=== PATIENT | female | born 2000 | race Caucasian/White ===

== ENCOUNTER 2025-05-07 21:28 | Emergency (ER) | payer MEDICAID ==
[2025-05-07 22:13] LABS: BASOPHILS ABSOLUTE AUTO 0.07 K/uL (0.00-0.10); BASOPHILS PERCENT AUTO 0.6 % (0.1-1.3); EOSINOPHILS ABSOLUTE AUTO 0.15 K/uL (0.00-0.40); EOSINOPHILS PERCENT AUTO 1.2 % (0.0-5.4); IMMATURE GRAN ABSOLUTE AUTO 0.05 K/uL (0.00-0.23); IMMATURE GRAN PERCENT AUTO 0.4 % (0.0-0.7); LYMPHOCYTES ABSOLUTE AUTO 1.70 K/uL (0.8-3.3); LYMPHOCYTES PERCENT AUTO 13.9 % (11.4-47.7); MONOCYTES ABSOLUTE AUTO 0.76 K/uL (0.20-0.90); MONOCYTES PERCENT AUTO 6.2 % (3.3-12.6); NEUTROPHILS ABSOLUTE AUTO 9.51 K/uL (1.0-7.6); NEUTROPHILS PERCENT AUTO 77.7 % (40.0-78.1); PLATELET COUNT,PLT 306 K/uL (130-375); RED BLOOD CELL COUNT 5.09 M/uL (3.77-5.24); WHITE BLOOD CELL COUNT,WBC 12.2 K/uL (3.2-11.0)
[2025-05-07] MEDS: Ondansetron 4 MG/2 ML SDV IVPUSH ONE (22:19)
[2025-05-07 22:39] LABS: LACTIC ACID 1.3 mmol/L (0.4-2.0)
[2025-05-07 22:43] LABS: HCG QUANTITATIVE 1 mIU/mL (0-6)
[2025-05-07 22:46] LABS: A/G RATIO 1.2 (1.2-2.2); ALANINE AMINOTRANSFERASE,ALT 237 U/L (12-78); ASPARTATE AMNIOTRANSFERASE,AST 362 U/L (15-37); BILIRUBIN TOTAL 0.8 mg/dL (0.2-1.0); BLOOD UREA NITROGEN,BUN 12 mg/dL (7-18); CARBON DIOXIDE,CO2 30 mmol/L (21-32); CHLORIDE,CL 106 mmol/L (100-108); CREATININE 0.8 mg/dL (0.6-1.0); EST CRCL DRUG DOSING (CG) 89.70 mL/min; ESTIMATED GFR 105 mL/min (>60); GLUCOSE RANDOM 123 mg/dL (74-106); POTASSIUM,K 3.9 mmol/L (3.6-5.2); PROTEIN TOTAL,TP 7.4 g/dL (6.4-8.2); SODIUM,NA 143 mmol/L (140-148)
[2025-05-07] MEDS ORDERED: Iopamidol 612 MG/ML 100 ML Bottle IV ONE (22:59)
[2025-05-07] MEDS ORDERED: Sodium Chloride 0.9% 10 ML Syringe FLUSH ONE (22:59)
[2025-05-07] MEDS: Iopamidol 612 MG/ML 100 ML Bottle IV SCH (23:37)
[2025-05-07] MEDS: Sodium Chloride 0.9% 10 ML Syringe FLUSH ONE (23:37)
[2025-05-07 23:38] LABS: APPEARANCE,URINE SLIGHTLY CLOUDY (CLEAR); GLUCOSE,URINE NEGATIVE (NEGATIVE); OCCULT BLOOD,URINE NEGATIVE (NEGATIVE)
[2025-05-08] MEDS ORDERED: Naloxone 0.4 MG/ML SDV IVPUSH PRN (01:51)
== END 2025-05-08 08:23 | disposition other institution (70) ==
LOC: JP.ED 21:28
DX: K81.9 Cholecystitis, unspecified (principal)
CPT/HCPCS: 36415; 74177; 76705; 80053; 81003; 83605; 83690; 84702; 85025; 86140; 96361; 96365; 96375; 99285; J2405; J2543; J7030; Q9967; J1171